=== PATIENT | female | born 1930 | race Caucasian/White ===

== ENCOUNTER 2018-11-04 00:19 | Inpatient (IN) ==
[2018-11-04] MEDS ORDERED: ONDANSETRON INJ 2 MG/ML 2 ML VIAL ONE (00:56)
[2018-11-04] MEDS ORDERED: SODIUM CHLORIDE 0.9% 1000ML 1,000 ML IV SCH ×2 (01:15→04:15)
[2018-11-04 01:31] LABS: Basophils # (auto) 0.04 K/uL (0-0.2); Basophils % (auto) 0.2 %; Eosinophils # (auto) 0.07 K/uL (0-0.5); Eosinophils % (auto) 0.4 %; Hematocrit (blood only) 32.4 % (37-47); Hemoglobin 10.8 g/dL (12.0-16.0); Immature Granulocytes # (auto) 0.09 K/uL (0.00-0.02); Immature Granulocytes % (auto) 0.5 %; Lymphocytes # (auto) 1.81 K/uL (1.2-3.4); Lymphocytes % (auto) 9.4 %; Mean Corpuscular Hgb Conc 33.3 g/dL (32-36); Mean Corpuscular Volume 97.9 fL (80-100); Mean Platelet Volume 10.4 fL (7.4-10.4); Monocytes % (auto) 4.1 %; Neutrophils # (auto) 16.48 K/uL (1.4-6.5); Neutrophils % (auto) 85.4 %; Platelet Count 221 K/uL (130-400); RDW Coefficient of Variation 13.1 % (11.5-14.5); RDW Standard Deviation 46.9 fL (36.4-46.3); Red Blood Count 3.31 M/uL (4.2-5.4); White Blood Count 19.29 K/uL (4.8-10.8)
[2018-11-04 01:41] LABS: INR 1.1 (0.9-1.1); Partial Thromboplastin Ratio 0.9; Partial Thromboplastin Time 23.1 Seconds (21.0-31.0); Prothrombin Time 11.3 Seconds (9.0-12.0)
[2018-11-04] MEDS ORDERED: ONDANSETRON INJ 2 MG/ML 2 ML VIAL IV STA (01:42)
[2018-11-04 01:57] LABS: BUN Creatinine Ratio 32.6 (10-20); Calcium 9.6 mg/dl (8.5-10.1); Creatinine Clr Calc Pharmacy 49.4 ml/min; Est GFR (African American) 94.6; Est GFR (Non-African American) 81.6
[2018-11-04 02:33] LABS: Appearance Urine Clear (Clear); Bilirubin Urine Negative (Negative); Blood Urine Negative (Negative); Color Urine Yellow; Glucose Urine UA Negative (Negative); Ketones Urine Trace (Negative); Leukocyte Esterase Urine Negative (Negative); Nitrite Urine Negative (Negative); Protein Urine Negative (Negative); Urobilinogen Urine Negative (Negative); pH Urine 6.5 (4.5-7.5)
[2018-11-04] MEDS ORDERED: fentaNYL citrate 100 MCG/2 ML VIAL IV ONE (02:39)
--- NOTE | 2018-11-04 03:50 | History & Physical Report ---
Date of Service November 04, 2018 Assessment & Plan (1) Hip fracture, right: Secondary to mechanical fall New onset anemia, possibly from joint trauma Patient also gives intermittent epistaxis episodes at home over the last few weeks. Hypoxemic respiratory failure likely secondary to narcotic analgesia breast cancer right status post surgery hypertension, stable Hyperglycemia rule out DM F Orthopedics consult Supplemental O2 caution with high doses of narcotic administration. Hold home diuretic while patient n.p.o. for possible procedure Check hemoglobin A1c No medical contraindication to prospective surgical procedure pending Orthopedics evaluation. DVT prophylaxis. SCDs Full code Patient requests for her nephew, Mr. Héctor Pineda to be updated of plan of care. (Contact #[phone].) History of Present Illness Chief Complaint: Fall, right hip pain Primary Care Provider: [facility] History obtained from patient and records. Medical history significant for breast cancer right status post surgery, hypertension, mood disorder, osteoarthritis, osteoporosis, skin cancer as per records. Recent confinement June 2018 for back pain attributed to T12 compression deformity. Last night, patient was at home when she was startled by a fire alarm at [facility]. Patient got up subsequently falling down on her right side. Patient noted excruciating right hip pain, unable to get up. Right hip noted to be shortened. No chest pain, no SOB. Denies head injury, LOC. O2 sats noted to be 80s after 8 mg of Morphine IM given en route to the hospital. 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, exertional shortness of breath prior to injury Allergies Allergy/AdvReac Type Severity Reaction Status Date / Time No Known Allergies Allergy Unknown Verified 11/04/18 02:09 Home Medications Home Medications Medication Instructions Recorded Confirmed Type acetaminophen [Tylenol Extra 500 mg PO Q6H PRN MDD 3g/24hr 06/26/18 11/04/18 History Strength] raloxifene 60 mg PO QAM 06/26/18 11/04/18 History sennosides-docusate sodium [Senna 3 tab PO BID PRN 06/26/18 11/04/18 History Plus] furosemide 20 mg PO MoWeFr@0900 #0 tab 06/27/18 11/04/18 Rx polyethylene glycol 3350 [Miralax] 17 g PO DAILY PRN #30 ea 06/27/18 11/04/18 Rx Solonpas Max Str Film 1 patch TOPICAL QAM 11/04/18 11/04/18 History alum-mag hydroxide-simeth [Antacid] 30 ml PO BIDM 11/04/18 11/04/18 History alum-mag hydroxide-simeth [Antacid] 30 ml PO TID PRN 11/04/18 11/04/18 History carvedilol 6.25 mg PO DAILY 11/04/18 11/04/18 History cholecalciferol (vitamin D3) 2,000 unit PO DAILY 11/04/18 11/04/18 History [Vitamin D3] lisinopril 10 mg PO QAM 11/04/18 11/04/18 History methyl salicylate-menthol [Icy Hot] 1 applic TOPICAL QAM 11/04/18 11/04/18 History sertraline 25 mg PO QAM 11/04/18 11/04/18 History trazodone 25 mg PO QAM 11/04/18 11/04/18 History Past Med/Surg History Medical History Mood disorder (Chronic) H/O malignant neoplasm of breast (Chronic) Bilateral lower extremity edema (Chronic) Osteoporosis (Chronic) Surgical History S/P cataract surgery (Chronic) H/O mastectomy (Chronic 04/01/13) "right, 2006" History of knee surgery (Chronic) Family History Other No pertinent family history in first degree relatives Social History Preferred Language: Korean Communication Ability: Effective Manager Pipeline Required: No Beliefs That Will Affect Care: None Current Living Situation: Alone current occupational status: retired Feels Safe at Home: Yes Safety Concerns: Feels Safe At This Time Smoking Status: Never smoker Hx Alcohol Use: No Hx Substance Use: No Review of Systems As per HPI, all 10 systems reviewed, all other ROS negative Physical Exam Vital Signs (Past 24 Hours): Last Vital Signs Temp 36.5 C 11/04/18 00:39 Pulse 75 11/04/18 02:43 Resp 18 11/04/18 02:43 BP 118/63 11/04/18 02:43 Pulse Ox 92 11/04/18 02:43 Physical Exam: GENERAL: uncomfortable, anxious, no respiratory distress SKIN: Pallor , warm HEENT: Pale palpebral conjunctivae, no ptosis, dry buccal mucosa, nasal cannula in place NECK : Supple, no tenderness CHEST : Decreased effort , no tenderness HEART : RRR, no obvious murmurs ABDOMEN: Some distention, nontender EXTREMITIES : Tender swelling right hip, right hip rotated ; no other conspicuous deformities noted NEUROLOGIC : Coherent, no facial asymmetry, no other gross focality Results & Data Laboratory Results Laboratory Results WBC 19.29 K/uL (4.8-10.8) H 11/04/18 01:15 RBC 3.31 M/uL (4.2-5.4) L 11/04/18 01:15 Hgb 10.8 g/dL (12.0-16.0) L 11/04/18 01:15 Hct 32.4 % (37-47) L 11/04/18 01:15 MCV 97.9 fL (80-100) 11/04/18 01:15 MCH 32.6 pg (25-34) 11/04/18 01:15 MCHC 33.3 g/dL (32-36) 11/04/18 01:15 RDW Std Deviation 46.9 fL (36.4-46.3) H 11/04/18 01:15 RDW Coeff of Ayesha 13.1 % (11.5-14.5) 11/04/18 01:15 Plt Count 221 K/uL (130-400) 11/04/18 01:15 MPV 10.4 fL (7.4-10.4) 11/04/18 01:15 Immature Gran % (Auto) 0.5 % 11/04/18 01:15 Neut % (Auto) 85.4 % 11/04/18 01:15 Lymph % (Auto) 9.4 % 11/04/18 01:15 [place] % (Auto) 4.1 % 11/04/18 01:15 Eos % (Auto) 0.4 % 11/04/18 01:15 Baso % (Auto) 0.2 % 11/04/18 01:15 Immature Gran # (Auto) 0.09 K/uL (0.00-0.02) H 11/04/18 01:15 Neut # (Auto) 16.48 K/uL (1.4-6.5) H 11/04/18 01:15 Lymph # (Auto) 1.81 K/uL (1.2-3.4) 11/04/18 01:15 [place] # (Auto) 0.80 K/uL (0.11-0.59) H 11/04/18 01:15 Eos # (Auto) 0.07 K/uL (0-0.5) 11/04/18 01:15 Baso # (Auto) 0.04 K/uL (0-0.2) 11/04/18 01:15 PT 11.3 Seconds (9.0-12.0) 11/04/18 01:15 INR 1.1 (0.9-1.1) 11/04/18 01:15 APTT 23.1 Seconds (21.0-31.0) 11/04/18 01:15 PTT Ratio 0.9 11/04/18 01:15 Sodium 133 mmol/L (136-145) L 11/04/18 01:15 Potassium mmol/L (3.5-5.1) 11/04/18 01:15 Chloride 104 mmol/L (98-107) 11/04/18 01:15 Carbon Dioxide 25 mmol/L (21-32) 11/04/18 01:15 Anion Gap 4.0 (3-11) 11/04/18 01:15 BUN 20 mg/dl (7-18) H 11/04/18 01:15 Creatinine 0.62 mg/dl (0.6-1.2) 11/04/18 01:15 Est Cr Clr Drug Dosing 49.4 ml/min 11/04/18 01:15 Est GFR ( Amer) 94.6 11/04/18 01:15 Est GFR (Non-Af Amer) 81.6 11/04/18 01:15 BUN/Creatinine Ratio 32.6 (10-20) H 11/04/18 01:15 Glucose 140 mg/dl (70-99) H 11/04/18 01:15 Calcium 9.6 mg/dl (8.5-10.1) 11/04/18 01:15 Urine Color Yellow 11/04/18 02:15 Urine Appearance Clear (Clear) 11/04/18 02:15 Urine pH 6.5 (4.5-7.5) 11/04/18 02:15 Ur Specific [place] 1.020 (1.000-1.030) 11/04/18 02:15 Urine Protein Negative (Negative) 11/04/18 02:15 Urine Glucose (UA) Negative (Negative) 11/04/18 02:15 Urine Ketones Trace (Negative) H 11/04/18 02:15 Urine Blood Negative (Negative) 11/04/18 02:15 Urine Nitrite Negative (Negative) 11/04/18 02:15 Urine Bilirubin Negative (Negative) 11/04/18 02:15 Urine Urobilinogen Negative (Negative) 11/04/18 02:15 Ur Leukocyte Esterase Negative (Negative) 11/04/18 02:15 Blood Type A Positive 11/04/18 01:15 Antibody Screen NEGATIVE 11/04/18 01:15 Diagnostic Findings Chest x-ray as per my interpretation no infiltrate no congestion EKG as per my interpretation : Rate 80, NSR, LAD, LAFB, LVH, no ischemia Right femur x-ray as per my interpretation displaced right hip fracture
[2018-11-04] MEDS ORDERED: MAGNESIUM HYDROXIDE SUSP 30 ML UDC PO PRN (03:55)
[2018-11-04] MEDS ORDERED: HYDROmorphone INJ 0.5 MG/0.5 ML SYR IV PRN (03:55)
[2018-11-04] MEDS ORDERED: PROCHLORPERAZINE 5 MG in SYRINGE 4 ML IV PRN (03:55)
[2018-11-04] MEDS ORDERED: NALOXONE HCL 0.4 MG/1 ML VIAL/CARP IV PRN ×2 (03:55→17:10)
[2018-11-04 04:04] LABS: Potassium 4.6 mmol/L (3.5-5.1)
[2018-11-04 04:13] LABS: Alanine Aminotransferase 13 U/L (12-78); Albumin Level 2.6 gm/dl (3.4-5.0); Alkaline Phosphatase 76 U/L (45-117); Aspartate Aminotransferase 16 U/L (15-37); Bilirubin Direct < 0.1 mg/dl (0-0.2); Bilirubin,Total 0.3 mg/dl (0.2-1); Magnesium 1.6 mg/dl (1.8-2.4); Total Protein 5.9 gm/dl (6.4-8.2)
[2018-11-04] MEDS ORDERED: DOCUSATE SODIUM/SENNA 50/8.6MG TAB PO PRN (04:56)
[2018-11-04] MEDS ORDERED: ACETAMINOPHEN 500 MG TAB PO PRN (04:56)
[2018-11-04] MEDS ORDERED: POLYETHYLENE (MIRALAX) 17 GM PACK PO PRN (04:56)
--- NOTE | 2018-11-04 05:54 | Emergency Department Note ---
Entered by Ney Navarrete acting as a scribe for Maine Mckeon DO History of Present Illness General Chief complaint: Hip Pain Stated complaint: hip fracture Time Seen by Provider: 11/04/18 00:30 Source: patient and RN notes reviewed Limitations: altered mental status History of Present Illness Maximum Pain Intensity: 10 The patient is an 88 year old female who presents to the Emergency Room with complaints of constant, severe, pain to her right thigh beginning prior to arrival. The patient states she got up from bed because she heard a fire alarm. She reports she got out of bed, and her leg gave out. The patient notes she has a history of broken bones, but she does not remember why. She states she is not sure if she hit her head, and her entire body hurts. Nursing staff reports the patient received 8mg of Morphine and 4mg of Zofran in route. Review of pt's chart shows she has a history of HTN and osteoporosis with pathological fractures of the vertebraes. HPI limited secondary to the patient's mental status. Home Medications Home Medications Medication Instructions Recorded Confirmed Type acetaminophen [Tylenol Extra 500 mg PO Q6H PRN MDD 3g/24hr 06/26/18 11/04/18 History Strength] raloxifene 60 mg PO QAM 06/26/18 11/04/18 History sennosides-docusate sodium [Senna 3 tab PO BID PRN 06/26/18 11/04/18 History Plus] furosemide 20 mg PO MoWeFr@0900 #0 tab 06/27/18 11/04/18 Rx polyethylene glycol 3350 [Miralax] 17 g PO DAILY PRN #30 ea 06/27/18 11/04/18 Rx Solonpas Max Str Film 1 patch TOPICAL QAM 11/04/18 11/04/18 History alum-mag hydroxide-simeth [Antacid] 30 ml PO BIDM 11/04/18 11/04/18 History alum-mag hydroxide-simeth [Antacid] 30 ml PO TID PRN 11/04/18 11/04/18 History carvedilol 6.25 mg PO DAILY 11/04/18 11/04/18 History cholecalciferol (vitamin D3) 2,000 unit PO DAILY 11/04/18 11/04/18 History [Vitamin D3] lisinopril 10 mg PO QAM 11/04/18 11/04/18 History methyl salicylate-menthol [Icy Hot] 1 applic TOPICAL QAM 11/04/18 11/04/18 History sertraline 25 mg PO QAM 11/04/18 11/04/18 History trazodone 25 mg PO QAM 11/04/18 11/04/18 History Allergies Allergy/AdvReac Type Severity Reaction Status Date / Time No Known Allergies Allergy Unknown Verified 11/04/18 02:09 Past Med/Surg History Medical History Mood disorder (Chronic) H/O malignant neoplasm of breast (Chronic) Bilateral lower extremity edema (Chronic) Osteoporosis (Chronic) Surgical History S/P cataract surgery (Chronic) H/O mastectomy (Chronic 04/01/13) "right, 2006" History of knee surgery (Chronic) Family History Other No pertinent family history in first degree relatives Social History Preferred Language: Faroese Communication Ability: Effective 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 Beliefs That Will Affect Care: None Current Living Situation: Alone current occupational status: retired Feels Safe at Home: Yes Safety Concerns: Feels Safe At This Time Smoking Status: Never smoker Hx Alcohol Use: No Hx Substance Use: No Review of Systems Unobtainable due to cognitive status Physical Exam Vital Signs Vital Signs - 24 hr 11/04/18 00:39 11/04/18 00:46 11/04/18 02:01 Temperature 36.5 C Temperature Source Oral Sepsis Recent Fever Within 48 Hours No Sepsis Action Taken by Nursing No Action Required Pulse Rate 88 Pulse Rate [Finger] 80 Pulse Rhythm [Finger] Pulse Strength [Finger] Respiratory Rate 18 18 Respiratory Effort / Characteristics Respiratory Depth Respiratory Pattern Blood Pressure 138/90 Blood Pressure [Right Arm] 151/73 H Blood Pressure Mean 106 Blood Pressure Mean [Right Arm] 99 Blood Pressure Position [Right Arm] Pulse Oximetry 83 L 96 99 Oxygen Delivery Method Room Air Nasal Cannula Nasal Cannula Oxygen Flow Rate 2 2 11/04/18 02:43 11/04/18 04:05 11/04/18 05:00 Temperature 36.4 C L Temperature Source Oral Sepsis Recent Fever Within 48 Hours Sepsis Action Taken by Nursing Pulse Rate Pulse Rate [Finger] 75 95 H Pulse Rhythm [Finger] Regular Pulse Strength [Finger] Normal Respiratory Rate 18 16 Respiratory Effort / Characteristics Non-Labored Spontaneous Respiratory Depth Normal Respiratory Pattern Regular Regular Blood Pressure Blood Pressure [Right Arm] 118/63 150/70 H Blood Pressure Mean Blood Pressure Mean [Right Arm] 81 96 Blood Pressure Position [Right Arm] Lying Pulse Oximetry 92 94 Oxygen Delivery Method Nasal Cannula Nasal Cannula Nasal Cannula Oxygen Flow Rate 2 2 2 HEENT: Head - normocephalic and atraumatic. Pupils are equal, round, and reactive to light. Extraocular eye muscles are intact and sclera are anicteric. Nose - moist nasal mucosa without evidence of trauma or discharge. Mouth - moist buccal mucosa with no trauma to the teeth or signs of malocclusion. Neck: The neck is supple and there is no pain to palpation over the posterior cervical spine and no obvious step-offs or deformities. There is no JVD or tracheal deviation. Chest: There are no signs of deformities, contusions or abrasions to the chest wall. There is no obvious crepitus or paradoxical chest rise. Heart: Regular, rate, and rhythm. There is a normal S1 and S2 with no murmurs, clicks, or gallops appreciated. Lungs: Clear to auscultation bilaterally with no wheezes, rales, or rhonchi. Abdomen: Soft, completely nontender, slightly distended, with good bowel sounds. There is no sign of trauma such as contusions, abrasions or penetrations. There are no palpable pulsatile masses or hepatosplenomegaly. There is no guarding, rigidity, or rebound noted. Pelvis: Stable to rock and compression. Extremities: Obvious deformity to the right proximal femur. Moderate edema in both feet and ankles. There are easily palpable peripheral pulses. Neuro: The patient is awake and alert and easily able to follow commands. Muscle strength is 5 out of 5 in all 4 extremities. Otherwise, neuro exam is unremarkable. Back: The entire thoracic, lumbar, and sacral spine were palpated. There are no obvious step-offs or deformities noted. There are no obvious signs of trauma such as contusions abrasions penetrations noted to the back. Severe kyphosis. Course 0053: The patient was evaluated in room B07. A complete history and physical examination were performed. Nursing notes and previous electronic medical records were reviewed. labs were drawn as above. 0115: Ordered Sodium Chloride 1000 ml @ 150 mls/hr IV 0142: Ordered Zofran 2mg IV 0234: The patient states she cannot keep her head up. She is going for a CT scan of the neck/head. 0239: The patient continues to complain of pain in the right proximal thigh. I ordered Fentanyl Citrate 50mcg IV 0332: I reevaluated the patient and discussed the findings with her. She verbalized agreement to a hospitalist evaluation and the treatment plan. The patient will be evaluated for further management and care. 0348: I reviewed the patient's case with Dr. Ferreira, [facility] Hospitalist. He will evaluate the patient for further management. Administered Medications Sodium Chloride (Nss 1000ml) 1,000 mls @ 60 mls/hr IV .[id number] [facility] Stop: 12/04/18 04:14 Last Admin: 11/04/18 05:26 Dose: 60 mls/hr Documented by: [id number] Discontinued Medications Fentanyl Citrate (Fentanyl Citrate) 50 mcg IV NOW ONE Stop: 11/04/18 02:40 Last Admin: 11/04/18 02:44 Dose: 50 mcg Documented by: [id number] Sodium Chloride (Nss 1000ml) 1,000 mls @ 150 mls/hr IV .[id number] [facility] Stop: 11/04/18 07:54 Last Infusion: 11/04/18 05:34 Dose: 0 mls/hr Documented by: [id number] Admin: 11/04/18 01:20 Dose: 150 mls/hr Documented by: [id number] Ondansetron HCl (Zofran) Confirm Administered Dose 4 mg .ROUTE .STK-MED ONE Stop: 11/04/18 00:57 Last Admin: 11/04/18 02:04 Dose: Not Given Documented by: [id number] Ondansetron HCl (Zofran) 2 mg IV NOW STA Stop: 11/04/18 01:43 Last Admin: 11/04/18 00:56 Dose: 2 mg Documented by: [id number] Medical Decision Making Differential Diagnosis Differential Diagnosis includes:pathologic fracture, traumatic fracture secondary to fall, dehydration, syncope. Medical Records Attestation: I reviewed the patient's medical records. Home Medications Current Medication List: was personally reviewed by me Laboratory Data Attestation: I reviewed the patient's lab results. Result diagrams: 11/04/18 01:15 11/04/18 03:39 Lab Results 11/04/18 11/04/18 11/04/18 Range/Units 01:15 01:15 01:15 WBC 19.29 H (4.8-10.8) K/uL RBC 3.31 L (4.2-5.4) M/uL Hgb 10.8 L (12.0-16.0) g/dL Hct 32.4 L (37-47) % MCV 97.9 (80-100) fL MCH 32.6 (25-34) pg MCHC 33.3 (32-36) g/dL RDW Std Deviation 46.9 H (36.4-46.3) fL RDW Coeff of Ayesha 13.1 (11.5-14.5) % Plt Count 221 (130-400) K/uL MPV 10.4 (7.4-10.4) fL Immature Gran % (Auto) 0.5 % Neut % (Auto) 85.4 % Lymph % (Auto) 9.4 % [place] % (Auto) 4.1 % Eos % (Auto) 0.4 % Baso % (Auto) 0.2 % Immature Gran # (Auto) 0.09 H (0.00-0.02) K/uL Neut # (Auto) 16.48 H (1.4-6.5) K/uL Lymph # (Auto) 1.81 (1.2-3.4) K/uL [place] # (Auto) 0.80 H (0.11-0.59) K/uL Eos # (Auto) 0.07 (0-0.5) K/uL Baso # (Auto) 0.04 (0-0.2) K/uL PT 11.3 (9.0-12.0) Seconds INR 1.1 (0.9-1.1) APTT 23.1 (21.0-31.0) Seconds PTT Ratio 0.9 Sodium 133 L (136-145) mmol/L Potassium (3.5-5.1) mmol/L Chloride 104 (98-107) mmol/L Carbon Dioxide 25 (21-32) mmol/L Anion Gap 4.0 (3-11) BUN 20 H (7-18) mg/dl Creatinine 0.62 (0.6-1.2) mg/dl Est Cr Clr Drug Dosing 49.4 ml/min Est GFR ( Amer) 94.6 Est GFR (Non-Af Amer) 81.6 BUN/Creatinine Ratio 32.6 H (10-20) Glucose 140 H (70-99) mg/dl Calcium 9.6 (8.5-10.1) mg/dl Magnesium (1.8-2.4) mg/dl Total Bilirubin (0.2-1) mg/dl Direct Bilirubin (0-0.2) mg/dl AST (15-37) U/L ALT (12-78) U/L Alkaline Phosphatase (45-117) U/L Total Protein (6.4-8.2) gm/dl Albumin (3.4-5.0) gm/dl Urine Color Urine Appearance (Clear) Urine pH (4.5-7.5) Ur Specific [place] (1.000-1.030) Urine Protein (Negative) Urine Glucose (UA) (Negative) Urine Ketones (Negative) Urine Blood (Negative) Urine Nitrite (Negative) Urine Bilirubin (Negative) Urine Urobilinogen (Negative) Ur Leukocyte Esterase (Negative) Blood Type Antibody Screen 11/04/18 11/04/18 11/04/18 Range/Units 01:15 02:15 03:39 WBC (4.8-10.8) K/uL RBC (4.2-5.4) M/uL Hgb (12.0-16.0) g/dL Hct (37-47) % MCV (80-100) fL MCH (25-34) pg MCHC (32-36) g/dL RDW Std Deviation (36.4-46.3) fL RDW Coeff of Ayesha (11.5-14.5) % Plt Count (130-400) K/uL MPV (7.4-10.4) fL Immature Gran % (Auto) % Neut % (Auto) % Lymph % (Auto) % [place] % (Auto) % Eos % (Auto) % Baso % (Auto) % Immature Gran # (Auto) (0.00-0.02) K/uL Neut # (Auto) (1.4-6.5) K/uL Lymph # (Auto) (1.2-3.4) K/uL [place] # (Auto) (0.11-0.59) K/uL Eos # (Auto) (0-0.5) K/uL Baso # (Auto) (0-0.2) K/uL PT (9.0-12.0) Seconds INR (0.9-1.1) APTT (21.0-31.0) Seconds PTT Ratio Sodium (136-145) mmol/L Potassium 4.6 (3.5-5.1) mmol/L Chloride (98-107) mmol/L Carbon Dioxide (21-32) mmol/L Anion Gap (3-11) BUN (7-18) mg/dl Creatinine (0.6-1.2) mg/dl Est Cr Clr Drug Dosing ml/min Est GFR ( Amer) Est GFR (Non-Af Amer) BUN/Creatinine Ratio (10-20) Glucose (70-99) mg/dl Calcium (8.5-10.1) mg/dl Magnesium 1.6 L (1.8-2.4) mg/dl Total Bilirubin 0.3 (0.2-1) mg/dl Direct Bilirubin < 0.1 (0-0.2) mg/dl AST 16 (15-37) U/L ALT 13 (12-78) U/L Alkaline Phosphatase 76 (45-117) U/L Total Protein 5.9 L (6.4-8.2) gm/dl Albumin 2.6 L (3.4-5.0) gm/dl Urine Color Yellow Urine Appearance Clear (Clear) Urine pH 6.5 (4.5-7.5) Ur Specific [place] 1.020 (1.000-1.030) Urine Protein Negative (Negative) Urine Glucose (UA) Negative (Negative) Urine Ketones Trace H (Negative) Urine Blood Negative (Negative) Urine Nitrite Negative (Negative) Urine Bilirubin Negative (Negative) Urine Urobilinogen Negative (Negative) Ur Leukocyte Esterase Negative (Negative) Blood Type A Positive Antibody Screen NEGATIVE Imaging Data Attestation: I personally reviewed and interpreted this imaging study as follows: My Impression: XR chest 1V portable: left basilar atelectasis, no other pulmonary findings, no cardiomegaly. XR femur RT 2V routine: proximal ,angulated, comminuted femur fracture XR pelvis 1-2V routine: Femur fracture that is better described on detailed femur film. Radiologist's Impression: Radiology results as stated below per my review and the [facility] radiologist's interpretation: CT HEAD: Comparison:CT dated 08/29/2015. No acute intracranial hemorrhage, skull fracture, or other acute intracranial abnormality. Stable atrophy and chronic small vessel ischemic disease. Radiologist: Shira Shelton MD Study ready at 03:14 and initial results transmitted at 03:23 CT C SPINE: No acute fracture or traumatic subluxation of the cervical spine. Markedly exaggerated cervical lordosis which maybe related to positioning. Correlate clinically. Degenerative changes of the cervical spine. Incidental findings: Left thyroid lobe nodule measuring 1.3 cm. Biapical scarring in the lungs. Atherosclerotic vascular disease. Radiologist: Shira Shelton MD Study ready at 03:14 and initial results transmitted at 03:25 ECG Data Attestation: I personally reviewed and interpreted this ECG as follows: Indication: other (trauma) Rate (beats per minute): 79 Rhythm: normal sinus Findings: no PAC, no PVC, no ST depression, no ST elevation, no acute ischemic change and no ectopy Blood Pressure Blood Pressure Findings: Normal blood pressure Blood Pressure Disposition: did not require urgent referral MDM Narrative The patient is an 88 year old female who presents to the Emergency Room with complaints of constant, severe, pain to her right thigh beginning prior to arrival. The patient got up out of bed tonight and describes that her right leg gave out and she fell to the floor. She denies striking her head or losing consciousness. She immediately developed a severe pain in the right proximal thigh. X-ray confirms an angulated comminuted proximal right femur fracture. The patient had good pulses sensation and movement in that right lower extremity despite the angulation. CT scan of the brain and cervical spine were negative for traumatic injury. The patient will be evaluated by the [facility] Hospitalist group and they will consult with orthopedics. Impression & Plan Closed fracture of proximal end of femur, Fall Discharge Plan Visit Data *Final* Discharge Date/Time: 11/04/18 04:17 Chief Complaint: Hip Pain Stated Complaint: hip fracture ED Provider: Botti,Maine A Discharge Problem: Closed fracture of proximal end of femur, Fall Patient Disposition: Admitted As Inpatient Discharge Instructions Interventions: ED Discharge Assessment Last Done: 11/04/18 04:17 Discharge Problem: Fall Qualifiers: Encounter type: initial encounter Qualified Code(s): W19.XXXA - Unspecified fall, initial encounter The scribe's documentation has been prepared under my direction and personally reviewed by me in its entirety. I confirm that the note above accurately reflects all work, treatment, procedures, and medical decision making performed by me.
--- NOTE | 2018-11-04 06:30 | CT Scan Report ---
CT head/brain wo con CLINICAL HISTORY: Head pain status post trauma COMPARISON STUDY: August 29, 2015 TECHNIQUE: Axial CT of the brain is performed from the vertex to the skull base. IV contrast was not administered for this examination. A dose lowering technique was utilized adhering to the principles of ALARA. CT DOSE: FINDINGS: No intra or extra-axial mass lesions are visualized. There is no CT evidence of acute cortical infarc tion. There is no evidence of midline shift. There is no acute hemorrhage. No calvarial fractures ar e visualized. There are patchy white matter hypodensities likely on a small vessel basis. There is no evidence of pathologic ventricular dilatation. There is a small left maxillary sinus polyp/retention cyst. IMPRESSION: No acute intracranial findings Electronically signed by: Archie Avilez M.D. 11/04/2018 6:28 AM
--- NOTE | 2018-11-04 06:55 | XRay Report ---
XR chest 1V portable CLINICAL HISTORY: pre-op COMPARISON STUDY: 08/29/2015 FINDINGS: The heart is the upper limits of normal in size. There is mild chronic interstitial thicken ing. There is no acute parenchymal consolidation. There is no overt failure. There are no significant pleural effusions. There are old right-sided rib fractures.[ IMPRESSION: Chronic changes. No acute findings. Electronically signed by: Archie Avilez M.D. 11/04/2018 6:54 AM
--- NOTE | 2018-11-04 06:59 | XRay Report ---
XR femur RT 2V routine CLINICAL HISTORY: Right femur pain status post trauma COMPARISON: None. DISCUSSION: The bones are osteopenic. There is an intertrochanteric right hip fracture with secondary varus angulation. The fracture extends into the proximal femoral diaphysis. IMPRESSION: Intertrochanteric right hip fracture with extension to the proximal femoral diaphysis. Se condary varus angulation. Electronically signed by: Archie Avilez M.D. 11/04/2018 6:58 AM
--- NOTE | 2018-11-04 07:00 | XRay Report ---
XR pelvis 1-2V routine CLINICAL HISTORY: Pelvic pain status post trauma COMPARISON: None. DISCUSSION: There is a comminuted intratrochanteric right hip fracture with extension to the proximal femoral diaphysis. There is secondary varus angulation. The bones are osteopenic. IMPRESSION: Intertrochanteric right hip fracture Electronically signed by: Archie Avilez M.D. 11/04/2018 6:58 AM
--- NOTE | 2018-11-04 07:18 | CT Scan Report ---
CERVICAL SPINE CT CT DOSE: 1078.32 mGy.cm HISTORY: eval for fracture - fall TECHNIQUE: Multiaxial CT images of the cervical spine were performed and reformatted in the sagittal and coronal plane without the use of contrast. A dose lowering technique was utilized adhering to th e principles of ALARA. COMPARISON: Cervical spine CT 08/29/2015. FINDINGS: No fractures. No subluxation. Prevertebral soft tissues and the C1-C2 interval are intact. No pneumothorax. Degenerative changes within the cervical spine. A 1.3 cm left thyroid nodule. Biapic al pleural-parenchymal scarring. IMPRESSION: No fractures within the cervical spine. Electronically signed by: Dagoberto Nation M.D. 11/04/2018 7:16 AM
[2018-11-04 07:35] LABS: Estimated Average Glucose 114 mg/dl; Hemoglobin A1C 5.6 % (4.5-5.6)
[2018-11-04] MEDS: TRAMADOL HCL 50 MG TABLET PO PRN (07:37)
[2018-11-04] MEDS: CARVEDILOL 6.25 MG TAB PO SCH (07:53)
[2018-11-04] MEDS: TRAZODONE HCL 50 MG TAB PO SCH (07:54)
[2018-11-04] MEDS: SERTRALINE HCL 50 MG TABLET PO SCH (07:54)
[2018-11-04] MEDS: LISINOPRIL 10 MG TAB PO SCH (07:55)
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
[2018-11-04] MEDS ORDERED: LISINOPRIL 10 MG TAB PO SCH ×2 (09:00)
--- NOTE | 2018-11-04 09:51 | Anesthesiology Consultation ---
Date of Service November 04, 2018 Assessment & Plan (1) Encounter for pre-operative examination: Chart Review Chart Review: Acceptable Risk for Surgery NPO Date Last Intake of Fluids: 11/03/18 Time Last Intake of Fluids: 23:59 Date Last Intake of Solids: 11/03/18 Time Last Intake of Solids: 23:59 History Surgery Operation Date: 11/04/18 07:10 Proposed Procedures p Right Long Trochanteric Nail Possible use of Cables - Kamran Harris MD Height/Weight Height: 5 ft 1 in Weight: 48 kg Allergies Allergy/AdvReac Type Severity Reaction Status Date / Time No Known Allergies Allergy Unknown Verified 11/04/18 02:09 Medications Home Medications Medication Instructions Recorded Confirmed Last Taken acetaminophen [Tylenol Extra 500 mg PO Q6H PRN MDD 3g/24hr 06/26/18 11/04/18 06/24/18 Strength] raloxifene 60 mg PO QAM 06/26/18 11/04/18 06/24/18 sennosides-docusate sodium [Senna 3 tab PO BID PRN 06/26/18 11/04/18 06/25/18 Plus] furosemide 20 mg PO MoWeFr@0900 #0 tab 06/27/18 11/04/18 06/24/18 polyethylene glycol 3350 [Miralax] 17 g PO DAILY PRN #30 ea 06/27/18 11/04/18 Unknown Solonpas Max Str Film 1 patch TOPICAL QAM 11/04/18 11/04/18 Unknown alum-mag hydroxide-simeth [Antacid] 30 ml PO BIDM 11/04/18 11/04/18 Unknown alum-mag hydroxide-simeth [Antacid] 30 ml PO TID PRN 11/04/18 11/04/18 Unknown carvedilol 6.25 mg PO DAILY 11/04/18 11/04/18 Unknown cholecalciferol (vitamin D3) 2,000 unit PO DAILY 11/04/18 11/04/18 Unknown [Vitamin D3] lisinopril 10 mg PO QAM 11/04/18 11/04/18 Unknown methyl salicylate-menthol [Icy Hot] 1 applic TOPICAL QAM 11/04/18 11/04/18 Unknown sertraline 25 mg PO QAM 11/04/18 11/04/18 Unknown trazodone 25 mg PO QAM 11/04/18 11/04/18 Unknown Active Medications Generic Name Dose Route Start Last Admin Trade Name Freq PRN Reason Stop Dose Admin Carvedilol 6.25 mg 11/04/18 09:00 11/04/18 07:53 Coreg PO 12/04/18 08:59 6.25 mg DAILY JESSICA Administration Hydromorphone HCl 0.25 mg 11/04/18 03:55 11/04/18 07:53 Dilaudid IV 11/18/18 03:54 0.25 mg Q2H PRN Administration Pain Sodium Chloride 1,000 mls @ 60 mls/hr 11/04/18 04:15 11/04/18 05:26 Nss 1000ml IV 12/04/18 04:14 60 mls/hr .[id number] JESSICA Administration Lisinopril 10 mg 11/04/18 09:00 11/04/18 07:55 Zestril PO 12/04/18 08:59 Not Given QAM JESSICA Sertraline HCl 25 mg 11/04/18 09:00 11/04/18 07:54 Zoloft PO 12/04/18 08:59 25 mg QAM JESSICA Administration Trazodone HCl 25 mg 11/04/18 09:00 11/04/18 07:54 Desyrel PO 12/04/18 08:59 25 mg QAM JESSICA Administration Past Medical History Medical History Mood disorder (Chronic) H/O malignant neoplasm of breast (Chronic) Bilateral lower extremity edema (Chronic) Osteoporosis (Chronic) Past Family History Family History Other No pertinent family history in first degree relatives Past Surgical History Surgical History S/P cataract surgery (Chronic) H/O mastectomy (Chronic 04/01/13) "right, 2006" History of knee surgery (Chronic) Social History Smoking Status: Never smoker Hx Alcohol Use: No Hx Substance Use: No substance use type: does not use Physical Exam Vital Signs Last Vital Signs Temp 36.8 C 11/04/18 13:17 Pulse 101 H 11/04/18 13:17 Resp 18 11/04/18 13:17 BP 118/64 11/04/18 13:17 Pulse Ox 93 11/04/18 13:17 Testing Electrocardiogram Date: 11/04/18 Findings: + NSR @ (79) Normal sinus rhythm Left anterior fascicular block Minimal voltage criteria for LVH, may be normal variant Cannot rule out Inferior infarct , age undetermined Abnormal ECG When compared with ECG of 31-AUG-2015 06:50, Criteria for Septal infarct are no longer Present No significant change was found Chest X-Ray Date: 11/04/18 Findings: + NAD Laboratory Results 11/04/18 01:15 11/04/18 03:39 Blood Type A Positive 11/04/18 01:15 Antibody Screen NEGATIVE 11/04/18 01:15 PT 11.3 Seconds (9.0-12.0) 11/04/18 01:15 INR 1.1 (0.9-1.1) 11/04/18 01:15 APTT 23.1 Seconds (21.0-31.0) 11/04/18 01:15 Hemoglobin A1c 5.6 % (4.5-5.6) 11/04/18 01:15 Urine Color Yellow 11/04/18 02:15 Urine Appearance Clear (Clear) 11/04/18 02:15 Urine pH 6.5 (4.5-7.5) 11/04/18 02:15 Ur Specific [place] 1.020 (1.000-1.030) 11/04/18 02:15 Urine Protein Negative (Negative) 11/04/18 02:15 Urine Glucose (UA) Negative (Negative) 11/04/18 02:15 Urine Ketones Trace (Negative) H 11/04/18 02:15 Urine Nitrite Negative (Negative) 11/04/18 02:15 Ur Leukocyte Esterase Negative (Negative) 11/04/18 02:15
[2018-11-04] MEDS ORDERED: PROPOFOL IV EMULSION 10 MG/ML 20 ML VIAL IV ONE (11:22)
[2018-11-04] MEDS ORDERED: fentaNYL citrate 100 MCG/2 ML VIAL ONE (11:22)
[2018-11-04] MEDS ORDERED: LIDOCAINE HCL 2% 2 ML VIAL/AMP(20MG/ML) INFIL ONE (11:22)
[2018-11-04] MEDS ORDERED: BUPIVACAINE 0.5 % 5 MG/1 ML PF 10ML VIAL ONE (13:14)
[2018-11-04] MEDS ORDERED: BUPIVACAINE 0.5 % 5 MG/1 ML MPF 30ML VIAL ONE (13:14)
--- NOTE | 2018-11-04 13:26 | History & Physical Bridge Note ---
Date of Service November 04, 2018 History & Physical Bridge Note I have examined the patient, reviewed the History & Physical and in the interval since the performance of the History & Physical I have noted the following changes of clinical significance: no changes noted
[2018-11-04] MEDS ORDERED: CEFAZOLIN 1,000 MG/7.5 ML IV PUSH IV ONE (13:29)
[2018-11-04] MEDS ORDERED: CEFAZOLIN 1000MG 1,000 MG/7.5 ML SYR IV ONE (13:38)
[2018-11-04] MEDS ORDERED: PHENYLEPHRINE 100MCG/ML 5ML SYR ONE (14:16)
[2018-11-04] MEDS ORDERED: PHENYLEPHRINE HCL 10 MG/ML VIAL ONE (14:16)
--- NOTE | 2018-11-04 15:11 | Hospitalist Progress Note ---
Date of Service November 04, 2018 Assessment & Plan (1) Hip fracture, right: Secondary to mechanical fall No history of loss of consciousness Appreciate Ortho input and recommendation Likely to have surgery sometime today or tomorrow No medical contraindication to prospective surgical procedure pending Orthopedics evaluation. Anemia, possibly from joint trauma Patient also gives intermittent epistaxis episodes at home over the last few weeks. Will monitor hemoglobin Hypoxemic respiratory failure likely secondary to narcotic analgesia Oxygen as needed H/O breast cancer right status post surgery hypertension, stable Hyperglycemia rule out DM DVT prophylaxis. SCDs Full code Patient requests for her nephew, Mr. Héctor Pineda to be updated of plan of care. (Contact #[phone].) Subjective 11/04 Patient is seen and examined medically She is a status post fall with fracture of the right humeral head Complaints of pain in the right lower extremity Denies any other symptoms of shortness of breath, palpitation chest pain, abdominal pain, nausea no vomiting, Physical Exam Vital Signs (Past 24 Hours): Last Vital Signs Temp 36.8 C 11/04/18 13:17 Pulse 101 H 11/04/18 13:17 Resp 18 11/04/18 13:17 BP 118/64 11/04/18 13:17 Pulse Ox 93 11/04/18 13:17 Physical Exam: Lying in bed comfortably Constitutional: WD/WN, vitals as above + ill appearing Eyes: PERRL, conjunctivae normal, anicteric sclerae ENMT: external ear and nose normal, oropharynx normal Neck: trachea midline, no thyromegaly Respiratory: normal respiratory effort Auscultation: lungs clear to auscultation bilaterally and + diminished lung sounds Cardiovascular: Rate/Rhythm: regular rate and regular rhythm Heart Sounds: normal S1 and normal S2 Gastrointestinal (Abdomen): Inspection/Auscultation: abdomen normal to inspection and normal bowel sounds Percussion/Palpation: abdomen soft; abdomen nontender Neurologic: Alert, awake and oriented x3 Results & Data Laboratory Results Short CBC 11/04/18 Range/Units 01:15 WBC 19.29 H (4.8-10.8) K/uL Hgb 10.8 L (12.0-16.0) g/dL Hct 32.4 L (37-47) % Plt Count 221 (130-400) K/uL BMP 11/04/18 11/04/18 01:15 03:39 Sodium 133 L Potassium 4.6 Chloride 104 Carbon Dioxide 25 BUN 20 H Creatinine 0.62 Glucose 140 H Calcium 9.6 Liver Function 11/04/18 Range/Units 03:39 Total Bilirubin 0.3 (0.2-1) mg/dl Direct Bilirubin < 0.1 (0-0.2) mg/dl AST 16 (15-37) U/L ALT 13 (12-78) U/L Alkaline Phosphatase 76 (45-117) U/L Albumin 2.6 L (3.4-5.0) gm/dl Urine 11/04/18 Range/Units 02:15 Urine Color Yellow Urine Appearance Clear (Clear) Urine pH 6.5 (4.5-7.5) Ur Specific [place] 1.020 (1.000-1.030) Urine Protein Negative (Negative) Urine Glucose (UA) Negative (Negative) Medications Administered Current Inpatient Medications Acetaminophen (Tylenol) 650 mg PO Q4H PRN PRN Reason: pain/fever Stop: 12/04/18 03:54 Carvedilol (Coreg) 6.25 mg PO DAILY [facility] Stop: 12/04/18 08:59 Last Admin: 11/04/18 07:53 Dose: 6.25 mg Documented by: Hydromorphone HCl (Dilaudid) 0.25 mg IV Q2H PRN PRN Reason: Pain Stop: 11/18/18 03:54 Last Admin: 11/04/18 07:53 Dose: 0.25 mg Documented by: Prochlorperazine 5 mg/ Syringe 5 mls @ 5 mls/min IV Q6H PRN PRN Reason: Nausea And Vomiting Stop: 12/04/18 03:54 Sodium Chloride (Nss 1000ml) 1,000 mls @ 60 mls/hr IV .[id number] [facility] Stop: 12/04/18 04:14 Last Admin: 11/04/18 05:26 Dose: 60 mls/hr Documented by: Lisinopril (Zestril) 10 mg PO QAM [facility] Stop: 12/04/18 08:59 Last Admin: 11/04/18 07:55 Dose: Not Given Documented by: Magnesium Hydroxide (Milk Of Magnesia) 30 ml PO DAILY PRN PRN Reason: Constipation Stop: 12/04/18 03:54 Naloxone HCl (Narcan) 0.1 mg IV UD PRN PRN Reason: Opiate Overdose Stop: 12/04/18 03:54 Polyethylene Glycol (Miralax Powder Packet) 17 gm PO DAILY PRN PRN Reason: constipation Stop: 12/04/18 04:55 Senna/Docusate Sodium (Senokot S) 3 tab PO BID PRN PRN Reason: Constipation Stop: 12/04/18 04:55 Sertraline [facility]ft) [facility] Stop: 12/04/18 08:59 Last Admin: 11/04/18 07:54 Dose: 25 mg Documented by: Tramadol HCl (Ultram) 25 - 50 mg PO Q4H PRN PRN Reason: Pain Stop: 12/04/18 03:54 Trazodone HCl (Desyrel) 25 mg PO QAM [facility] Stop: 12/04/18 08:59 Last Admin: 11/04/18 07:54 Dose: 25 mg Documented by:
--- NOTE | 2018-11-04 15:51 | Fluoroscopy Report ---
FL hip RT 2-3V CLINICAL HISTORY: RT LONG TROCH NAILoperative images COMPARISON STUDY: 11/04/2018 FLUOROSCOPY TIME: 4 minutes 6 seconds NUMBER OF FLUOROSCOPIC IMAGES: 7 FINDINGS: Image intensifier utilized for right hip Nailing procedure As well as placement of a longstem right femoral intramedullary ventura. IMPRESSION: Image intensifier utilized for right hip nailing procedure as well as placement of a righ t femoral intramedullary ventura The above report was generated using voice recognition software. It may contain grammatical, syntax or spelling errors. Electronically signed by: Jerome Mcguire M.D. 11/04/2018 3:50 PM
--- NOTE | 2018-11-04 16:13 | Post Operative Brief Note ---
Immediate Post Op Note v1 Date of Surgery November 04, 2018 Pre & Post Diagnosis Operation Date: 11/04/18 07:10 Pre-Op Diagnosis: Right intertrochanteric hip fracture with femoral shaft fracture extension Post-Op Diagnosis: Right intertrochanteric hip fracture with femoral shaft fracture extension Procedure Operation Date: 11/04/18 07:10 Actual Procedures p Open Reduction Internal Fixation Right Intertrochanteric and Upper Femoral Shaft Fracture(Right) with trochanteric femoral nail- Kamran Harris MD Surgeon Kamran Harris MD Lecturer In Computer Science Murali GARZA Estimated Blood Loss 50 Findings Consistent with Post-Op Diagnosis Drains Owen Catheter (in place prior to admission to OR, clear yellow urine noted. Anesthesia to monitor urine output during surgery) Anesthesia Type Spinal MAC Complications none Disposition Accompanied Patient To Recovery: No Disposition: Recovery Room Overlapping Procedure I was immediately available: during the entire case.
--- NOTE | 2018-11-04 16:19 | Anesthesiology Progress Note ---
Date of Service November 04, 2018 Anesthesia Post Procedure Vital Signs Vital Signs: Temp Pulse Pulse Resp BP BP Pulse Ox 11/04/18 13:17 36.8 C 101 H 18 118/64 93 11/04/18 07:08 36.4 C L 91 H 16 134/66 96 11/04/18 05:42 11/04/18 05:37 11/04/18 04:05 36.4 C L 95 H 16 150/70 H 94 11/04/18 02:43 75 18 118/63 92 11/04/18 02:01 80 18 151/73 H 99 11/04/18 00:46 96 11/04/18 00:39 36.5 C 88 18 138/90 83 L Pulse Ox 11/04/18 13:17 11/04/18 07:08 11/04/18 05:42 95 11/04/18 05:37 95 11/04/18 04:05 11/04/18 02:43 11/04/18 02:01 11/04/18 00:46 11/04/18 00:39 Pain Intensity Right Hip: Pain Intensity: 0 Notes Mental Status: alert / awake / arousable and participated in evaluation Patient Amnestic to Procedure: Yes Nausea / Vomiting: adequately controlled Pain: adequately controlled Airway Patency, RR, SpO2: stable & adequate BP & HR: stable & adequate Hydration State: stable & adequate Anesthetic Complications: no major complications apparent and Pt Satisfied with anesthetic care
--- NOTE | 2018-11-04 17:14 | Anesthesiology Progress Note ---
Date of Service November 04, 2018 Anesthesia Post Procedure Vital Signs Vital Signs: Temp Pulse Pulse Pulse Resp BP BP 11/04/18 16:45 36.8 C 108/54 L 11/04/18 16:41 65 20 103/49 L 11/04/18 16:40 65 14 11/04/18 16:36 62 15 105/43 L 11/04/18 16:35 66 14 11/04/18 16:31 63 17 108/50 L 11/04/18 16:30 64 16 11/04/18 16:26 65 16 103/50 L 11/04/18 16:25 66 16 11/04/18 16:21 66 16 106/55 L 11/04/18 16:20 67 20 11/04/18 16:17 65 18 108/51 L 11/04/18 16:15 66 20 11/04/18 16:12 65 18 119/58 L 11/04/18 16:10 61 18 11/04/18 16:07 61 17 123/53 L 11/04/18 16:05 66 15 11/04/18 16:01 61 20 11/04/18 16:00 36.0 C L 70 69 16 131/45 L 131/45 L 11/04/18 13:17 36.8 C 101 H 18 11/04/18 07:08 36.4 C L 91 H 16 11/04/18 05:42 11/04/18 05:37 11/04/18 04:05 36.4 C L 95 H 16 11/04/18 02:43 75 18 11/04/18 02:01 80 18 11/04/18 00:46 11/04/18 00:39 36.5 C 88 18 138/90 BP Pulse Ox Pulse Ox 11/04/18 16:45 95 11/04/18 16:41 91 11/04/18 16:40 90 11/04/18 16:36 92 11/04/18 16:35 87 L 11/04/18 16:31 96 11/04/18 16:30 88 L 11/04/18 16:26 93 11/04/18 16:25 95 11/04/18 16:21 91 11/04/18 16:20 90 11/04/18 16:17 93 11/04/18 16:15 91 11/04/18 16:12 11/04/18 16:10 100 11/04/18 16:07 11/04/18 16:05 100 11/04/18 16:01 11/04/18 16:00 99 11/04/18 13:17 118/64 93 11/04/18 07:08 134/66 96 11/04/18 05:42 95 11/04/18 05:37 95 11/04/18 04:05 150/70 H 94 11/04/18 02:43 118/63 92 11/04/18 02:01 151/73 H 99 11/04/18 00:46 96 11/04/18 00:39 83 L Pain Intensity Right Hip: Pain Intensity: 0 Notes Mental Status: alert / awake / arousable Patient Amnestic to Procedure: Yes Nausea / Vomiting: adequately controlled Pain: adequately controlled Airway Patency, RR, SpO2: stable & adequate BP & HR: stable & adequate Hydration State: stable & adequate Neuraxial Anesthesia: was administered and sensory block is resolving Anesthetic Complications: no major complications apparent and Pt Satisfied with anesthetic care
[2018-11-04] MEDS: CEFAZOLIN 1000MG 1,000 MG/7.5 ML SYR IV SCH (22:30)
--- NOTE | 2018-11-05 01:30 | Operative Report ---
DATE OF OPERATION: 11/04/2018 INDICATION FOR PROCEDURE: The patient is an 88-year-old female who was at a personal skilled nursing. She has been sleeping in a recliner lately because of fractures in her back and being more comfortable and apparently fire alarm went off at the skilled nursing and she jumped out of the chair, fell and broke her hip and femur. She had a closed comminuted displaced intertrochanteric femur fracture with a large butterfly fragment extending into the femoral shaft and displaced lesser trochanteric fracture in varus alignment and marked shortening external rotation of the leg. PREOPERATIVE DIAGNOSIS: Closed comminuted right intertrochanteric hip fracture with proximal femoral shaft extension. POSTOPERATIVE DIAGNOSIS: Closed comminuted right intertrochanteric hip fracture with proximal femoral shaft extension. PROCEDURE: Open reduction internal fixation of trochanteric and upper femoral shaft fracture with a long trochanteric femoral nail by Synthes. SURGEON: Kamran Harris MD PROPERTY INSPECTOR: KAYLA Moss ANESTHESIA: Spinal, MAC. ESTIMATED BLOOD LOSS: 50 mL. FINDINGS: Consistent with postoperative diagnosis. DRAINS: None, but Owen catheter was in place prior to surgery. COMPLICATIONS: None. OPERATIVE PROCEDURE: The patient was taken to the operating room, anesthetized under spinal anesthetic per anesthesia department. She was transferred to the fracture table. She was brought down onto a perineal post. The left leg was placed into a leg holding device. It was well padded. Right leg was placed in boot traction. We initially had her hip in external rotation and abduction and we placed longitudinal traction, internal rotation, and adduction to reduce the fracture. We did some manipulation of the fracture fragments as well to align the fracture fragments. We got good alignment with traction and rotational realignment. There is still some minor displacement but generally there was good rotational alignment and fracture was out to length. At this time, the right lower extremity was prepped and draped in sterile fashion using ChloraPrep starting from the proximal to the hip area down to below the knee. The longitudinal incision was made proximal to the greater trochanter for about a 4-cm incision. Skin was incised sharply and subcutaneous fat was dissected down to the fascia. Subcutaneous bleeders were cauterized. The fascia was divided longitudinally and the gluteus medius was split with a Chaves elevator and the tip of the trochanter was palpated and a guide pin was advanced under fluoroscopic guidance into the fracture site without difficulty. Then, the Synthes long titanium trochanteric femoral nail with helical blade was used. The drill was used over the guide pin for the proximal insertional site. Then we placed the beaded guidewire down to the patella and we measured the length and chose the 360-mm length femoral nail. At this time, we dropped one 12-mm reamer down the canal just to make sure we had enough room for the 11-mm ventura. The ventura chosen was 11 x 360 mm titanium cannulated trochanteric Synthes femoral nail. This was placed on the insertion device. We placed it down over the guidewire under fluoroscopic guidance. The nail was seated to appropriate height. We did make some adjustments to get the guidewire into the appropriate position but the guidewire was placed in the lower third on the AP view and central, but just slightly anterior from central on the lateral view, but we felt it was satisfactory position. Then appropriate drills were used and the titanium spiral helical blade, which was 105 mm length was impacted fully with good purchase. The proximal screw was tightened. Then we did perfect circles to place 2 locking bolts to distal ventura. It was noted that her bone was extremely soft and the bite was only fair, but this was due to her osteoporosis. Documented reduction of the fracture on multiple views, AP and lateral. Then the wounds were copiously irrigated. The fascia was closed with [id number] #1 Vicryl sutures. Subcutaneous tissues were closed with interrupted 2-0 Vicryl, skin closed with roshan, multiple incisions, and sterile dressings were applied. The patient had about 50 mL of blood loss and tolerated the procedure well. KAYLA Moss, was my first dyer and functioned as first dyer throughout the entire procedure. He assisted me in patient positioning, assisted in reducing the fracture, he assisted in soft tissue retraction, instrument management during the procedure and performed some of the fascial, subcutaneous, and skin closure and will participate in the postoperative care of the patient. I attest to the content of the Intraoperative Record and any orders documented therein. Any exception s are noted below.
[2018-11-05] MEDS ORDERED: SODIUM CHLORIDE 0.9% 1000ML 1,000 ML IV STA (06:34)
[2018-11-05] MEDS ORDERED: MAGNESIUM SULFATE / D5W 1 GM/100 ML BAG IV ONE (06:45)
[2018-11-05] MEDS: CEFAZOLIN 1000MG 1,000 MG/7.5 ML SYR IV SCH (06:47)
[2018-11-05 07:15] LABS: BUN Creatinine Ratio 47.8 (10-20); Calcium 9.3 mg/dl (8.5-10.1); Creatinine Clr Calc Pharmacy 58.6 ml/min; Est GFR (African American) 100.3; Est GFR (Non-African American) 86.5; Potassium 4.3 mmol/L (3.5-5.1)
[2018-11-05 07:21] LABS: Hematocrit (blood only) 20.5 % (37-47); Hemoglobin 6.9 g/dL (12.0-16.0); Mean Corpuscular Hgb Conc 33.7 g/dL (32-36); Mean Corpuscular Volume 96.2 fL (80-100); Mean Platelet Volume 10.2 fL (7.4-10.4); Platelet Count 182 K/uL (130-400); RDW Coefficient of Variation 13.4 % (11.5-14.5); RDW Standard Deviation 46.9 fL (36.4-46.3); Red Blood Count 2.13 M/uL (4.2-5.4); White Blood Count 10.83 K/uL (4.8-10.8)
[2018-11-05 07:22] LABS: Basophils # (auto) 0.01 K/uL (0-0.2); Basophils % (auto) 0.1 %; Hypochromasia Present; Immature Granulocytes # (auto) 0.03 K/uL (0.00-0.02); Immature Granulocytes % (auto) 0.3 %; Lymphocytes # (auto) 1.23 K/uL (1.2-3.4); Lymphocytes % (auto) 11.4 %; Monocytes # (auto) 1.17 K/uL (0.11-0.59); Monocytes % (auto) 10.8 %; Neutrophils # (auto) 8.39 K/uL (1.4-6.5); Neutrophils % (auto) 77.4 %
--- NOTE | 2018-11-05 07:47 | Orthopedic Progress Note ---
Date of Service November 05, 2018 Assessment & Plan (1) Hip fracture, right: POD #1, Right hip ORIF Long Troch nail Acute blood loss anemia w HGB 6.8, will have nursing notify primary service if not already done for likely transfusion. PT/ Ot- TTWB DVT proph- Lovenox Disposition per primary team, likely SNF/ Rehab. Subjective POD #1, Patient states no pain, hip comfortable. Denies N/V, CP. HGB 8.6, pulse 101, BP stable. Physical Exam Vital Signs (Past 24 Hours): Last Vital Signs Temp 36.7 C 11/05/18 04:20 Pulse 101 H 11/05/18 04:20 Resp 16 11/05/18 04:20 BP 120/56 L 11/05/18 04:20 Pulse Ox 92 11/05/18 04:21 Physical Exam: Patient confused, stated twice she "needed to get down". I explained where she was and she understood. She was able to vaguely remember hurting her hip and having surgery. Hip Dressing c/d/i, no drainage, no erythema, no calf tenderness, toes and ankle mobile.
[2018-11-05] MEDS ORDERED: SODIUM CHLORIDE 0.9% 250 ML IV PRN (08:12)
[2018-11-05] MEDS: CARVEDILOL 6.25 MG TAB PO SCH (08:56)
[2018-11-05] MEDS: LISINOPRIL 10 MG TAB PO SCH (08:57)
[2018-11-05] MEDS: TRAZODONE HCL 50 MG TAB PO SCH (08:57)
[2018-11-05] MEDS: ACETAMINOPHEN 325 MG TAB PO PRN (08:59)
[2018-11-05] MEDS: SERTRALINE HCL 50 MG TABLET PO SCH (08:59)
[2018-11-05] MEDS: ENOXAPARIN INJ 30 MG/0.3 ML SYR SQ SCH (09:21)
[2018-11-05] MEDS: TRAMADOL HCL 50 MG TABLET PO PRN (14:46)
--- NOTE | 2018-11-05 15:20 | Hospitalist Progress Note ---
Date of Service November 05, 2018 Assessment & Plan (1) Hip fracture, right: Secondary to mechanical fall No history of loss of consciousness Appreciate Ortho input and recommendation Likely to have surgery sometime today or tomorrow No medical contraindication to prospective surgical procedure pending Orthopedics evaluation. Status post right hip ORIF with long trochanteric nail, POD #1 Clinically stable Will get PT OT evaluation and possible placement on discharge Anemia, possibly from joint trauma Patient also gives intermittent epistaxis episodes at home over the last few weeks. Hemoglobin dropped to 6.9 this morning 1 unit of blood was transfused Hypoxemic respiratory failure likely secondary to narcotic analgesia Oxygen as needed Remains stable without any acute shortness of breath H/O breast cancer right status post surgery hypertension, stable Hyperglycemia rule out DM DVT prophylaxis. SCDs Full code Patient requests for her nephew, Mr. Héctor Pineda to be updated of plan of care. (Contact #[phone].) Subjective 11/04 Patient is seen and examined medically She is a status post fall with fracture of the right humeral head Complaints of pain in the right lower extremity Denies any other symptoms of shortness of breath, palpitation chest pain, abdominal pain, nausea no vomiting, 11/05 Patient was seen and examined in the medical floor She is status post right hip surgery He denies any significant symptoms except some pain in the right hip and leg Physical Exam Vital Signs (Past 24 Hours): Last Vital Signs Temp 36.7 C 11/05/18 12:50 Pulse 106 H 11/05/18 12:50 Resp 18 11/05/18 12:50 BP 94/54 L 11/05/18 12:50 Pulse Ox 92 11/05/18 12:50 Physical Exam: No apparent distress at rest Constitutional: WD/WN, vitals as above + ill appearing Eyes: PERRL, conjunctivae normal, anicteric sclerae ENMT: external ear and nose normal, oropharynx normal Neck: trachea midline, no thyromegaly Respiratory: normal respiratory effort Auscultation: lungs clear to auscultation bilaterally and + diminished lung sounds Cardiovascular: Rate/Rhythm: regular rate and regular rhythm Heart Sounds: normal S1 and normal S2 Gastrointestinal (Abdomen): Inspection/Auscultation: abdomen normal to inspection and normal bowel sounds Percussion/Palpation: abdomen soft; abdomen nontender Neurologic: Alert, awake and oriented Results & Data Laboratory Results Short CBC 11/05/18 Range/Units 06:37 WBC 10.83 H (4.8-10.8) K/uL Hgb 6.9 L* D (12.0-16.0) g/dL Hct 20.5 L* (37-47) % Plt Count 182 (130-400) K/uL BMP 11/05/18 06:37 Sodium 135 L Potassium 4.3 Chloride 106 Carbon Dioxide 27 BUN 25 H Creatinine 0.52 L Glucose 121 H Calcium 9.3 Medications Administered Current Inpatient Medications Acetaminophen (Tylenol) 650 mg PO Q4H PRN PRN Reason: pain/fever Stop: 12/04/18 03:54 Last Admin: 11/05/18 08:59 Dose: 650 mg Documented by: Carvedilol (Coreg) 6.25 mg PO DAILY JESSICA Stop: 12/04/18 08:59 Last Admin: 11/05/18 08:56 Dose: Not Given Documented by: Enoxaparin Sodium (Lovenox) 30 mg SQ Q24H [facility]ESSICA Stop: 12/05/18 08:59 Last Admin: 11/05/18 09:21 Dose: 30 mg Documented by: Hydromorphone HCl (Dilaudid) 0.25 mg IV Q2H PRN PRN Reason: Pain Stop: 11/18/18 03:54 Last Admin: 11/04/18 07:53 Dose: 0.25 mg Documented by: Prochlorperazine 5 mg/ Syringe 5 mls @ 5 mls/min IV Q6H PRN PRN Reason: Nausea And Vomiting Stop: 12/04/18 03:54 Sodium Chloride (Nss 1000ml) 1,000 mls @ 60 mls/hr IV .[id number] STA Stop: 11/05/18 23:13 Last Admin: 11/05/18 06:47 Dose: 60 mls/hr Documented by: Sodium Chloride (Nss) 250 mls @ 15 mls/hr IV .[id number] PRN PRN Reason: For Transfusion Stop: 12/05/18 08:11 Lisinopril (Zestril) 10 mg PO QAM JESSICA Stop: 12/04/18 08:59 Last Admin: 11/05/18 08:57 Dose: Not Given Documented by: Magnesium Hydroxide (Milk Of Magnesia) 30 ml PO DAILY PRN PRN Reason: Constipation Stop: 12/04/18 03:54 Naloxone HCl (Narcan) 0.1 mg IV UD PRN PRN Reason: Opioid Overdose Stop: 12/04/18 17:09 Polyethylene Glycol (Miralax Powder Packet) 17 gm PO DAILY PRN PRN Reason: constipation Stop: 12/04/18 04:55 Senna/Docusate Sodium (Senokot S) 3 tab PO BID PRN PRN Reason: Constipation Stop: 12/04/18 04:55 Sertraline [facility] ([facility]ft) [facility] [place] Stop: 12/04/18 08:59 Last Admin: 11/05/18 08:59 Dose: 25 mg Documented by: Tramadol HCl (Ultram) 25 - 50 mg PO Q4H PRN PRN Reason: Pain Stop: 12/04/18 03:54 Last Admin: 11/05/18 14:46 Dose: 50 mg Documented by: Trazodone HCl (Desyrel) 25 mg PO QAM [facility] Stop: 12/04/18 08:59 Last Admin: 11/05/18 08:57 Dose: Not Given Documented by:
[2018-11-06 07:59] LABS: Hematocrit (blood only) 20.8 % (37-47); Hemoglobin 7.1 g/dL (12.0-16.0); Mean Corpuscular Hgb Conc 34.1 g/dL (32-36); Mean Corpuscular Volume 91.6 fL (80-100); Mean Platelet Volume 10.3 fL (7.4-10.4); Platelet Count 141 K/uL (130-400); RDW Coefficient of Variation 17.3 % (11.5-14.5); RDW Standard Deviation 59.1 fL (36.4-46.3); Red Blood Count 2.27 M/uL (4.2-5.4); White Blood Count 12.38 K/uL (4.8-10.8)
[2018-11-06 08:08] LABS: Basophils # (auto) 0.01 K/uL (0-0.2); Basophils % (auto) 0.1 %; Eosinophils # (auto) 0.01 K/uL (0-0.5); Eosinophils % (auto) 0.1 %; Immature Granulocytes # (auto) 0.03 K/uL (0.00-0.02); Immature Granulocytes % (auto) 0.2 %; Lymphocytes % (auto) 12.1 %; Monocytes # (auto) 1.34 K/uL (0.11-0.59); Monocytes % (auto) 10.8 %; Neutrophils # (auto) 9.49 K/uL (1.4-6.5); Neutrophils % (auto) 76.7 %
[2018-11-06] MEDS ORDERED: SODIUM CHLORIDE 0.9% 250 ML IV PRN (08:09)
[2018-11-06] MEDS: SERTRALINE HCL 50 MG TABLET PO SCH (09:26)
[2018-11-06] MEDS: TRAZODONE HCL 50 MG TAB PO SCH (09:26)
[2018-11-06] MEDS: LISINOPRIL 10 MG TAB PO SCH (09:26)
[2018-11-06] MEDS: ENOXAPARIN INJ 30 MG/0.3 ML SYR SQ SCH (09:27)
[2018-11-06] MEDS: CARVEDILOL 6.25 MG TAB PO SCH (09:27)
--- NOTE | 2018-11-06 10:45 | Orthopedic Progress Note ---
Date of Service November 06, 2018 Assessment & Plan (1) Hip fracture, right: POD #2, Right hip ORIF Long Troch nail Acute blood loss anemia w HGB 7.1, s/p transfusion, as per medicine. PT/ Ot- TTWB DVT proph- Lovenox Disposition per primary team, likely SNF/ Rehab. Subjective POD #2, Patient states no pain, hip comfortable. Denies N/V, CP. HGB 7.1, pulse 88, BP stable. Physical Exam Vital Signs (Past 24 Hours): Last Vital Signs Temp 36.6 C 11/06/18 10:09 Pulse 88 11/06/18 10:09 Resp 19 11/06/18 10:09 BP 120/63 11/06/18 10:09 Pulse Ox 98 11/06/18 10:09 Physical Exam: Right hip dressings c/d/i, no drainage, no calf tenderness, toes and ankle mobile, still pleasantly confused, thinks she is at [place].
--- NOTE | 2018-11-06 18:03 | Hospitalist Progress Note ---
Date of Service November 06, 2018 Assessment & Plan (1) Hip fracture, right: Secondary to mechanical fall No history of loss of consciousness Appreciate Ortho input and recommendation Likely to have surgery sometime today or tomorrow No medical contraindication to prospective surgical procedure pending Orthopedics evaluation. Status post right hip ORIF with long trochanteric nail, POD #2 Clinically stable Will get PT OT evaluation and possible placement on discharge Likely be discharged tomorrow for short-term rehab Anemia, possibly from joint trauma Patient also gives intermittent epistaxis episodes at home over the last few weeks. Hemoglobin dropped to 6.9 this morning 1 unit of blood was transfused Hemoglobin dropped to 7.1 today and will give another unit of blood transfusion Hypoxemic respiratory failure likely secondary to narcotic analgesia Oxygen as needed Remains stable without any acute shortness of breath H/O breast cancer right status post surgery hypertension, stable Hyperglycemia rule out DM DVT prophylaxis. SCDs Full code Patient requests for her nephew, Mr. Héctor Pineda to be updated of plan of care. (Contact #[phone].) Likely discharge tomorrow Subjective 4/15 Patient is seen and examined medically She is a status post fall with fracture of the right humeral head Complaints of pain in the right lower extremity Denies any other symptoms of shortness of breath, palpitation chest pain, abdominal pain, nausea no vomiting, 4/16 Patient was seen and examined in the medical floor She is status post right hip surgery He denies any significant symptoms except some pain in the right hip and leg 4/17 Remains a stable since yesterday Hemoglobin dropped to 7.1 and we will give another unit of packed red cell blood transfusion Remains asymptomatic otherwise POD #2, Patient states no pain, hip comfortable. Denies N/V, CP. HGB 7.1, pulse 88, BP stable. Review of Systems Musculoskeletal: Right lower extremity movement causes pain in the hip Neurologic: Generally weak and lethargic Physical Exam Physical Exam: No apparent distress at rest Constitutional: WD/WN, vitals as above + ill appearing Eyes: PERRL, conjunctivae normal, anicteric sclerae ENMT: external ear and nose normal, oropharynx normal Neck: trachea midline, no thyromegaly Respiratory: normal respiratory effort Auscultation: lungs clear to auscultation bilaterally and + diminished lung sounds Cardiovascular: Rate/Rhythm: regular rate and regular rhythm Heart Sounds: normal S1 and normal S2 Gastrointestinal (Abdomen): Inspection/Auscultation: abdomen normal to inspection and normal bowel sounds Percussion/Palpation: abdomen soft; abdomen nontender Neurologic: Alert, awake and oriented x3 Results & Data Vital Signs (Past 12 Hours) Vital Signs Temp Pulse Pulse Pulse Resp BP BP 11/06/18 15:00 36.7 C 76 19 119/56 L 11/06/18 13:15 36.8 C 95 H 22 135/61 11/06/18 12:10 36.8 C 87 17 124/62 11/06/18 11:10 36.6 C 88 17 122/63 11/06/18 10:09 36.6 C 88 19 120/63 11/06/18 09:50 36.8 C 85 18 112/60 11/06/18 09:25 37.0 C 93 H 19 112/64 11/06/18 09:08 36.2 C L 81 18 132/65 11/06/18 08:05 36.5 C 81 16 108/58 L 11/06/18 06:58 36.5 C 99 H 14 137/69 Pulse Ox 11/06/18 15:00 93 11/06/18 13:15 92 11/06/18 12:10 97 11/06/18 11:10 98 11/06/18 10:09 98 11/06/18 09:50 98 11/06/18 09:25 98 11/06/18 09:08 98 11/06/18 08:05 97 11/06/18 06:58 96 Laboratory Results Short CBC 11/06/18 Range/Units 07:13 WBC 12.38 H (4.8-10.8) K/uL Hgb 7.1 L (12.0-16.0) g/dL Hct 20.8 L* (37-47) % Plt Count 141 (130-400) K/uL Medications Administered Current Inpatient Medications Acetaminophen (Tylenol) 650 mg PO Q4H PRN PRN Reason: pain/fever Stop: 12/04/18 03:54 Last Admin: 11/05/18 08:59 Dose: 650 mg Documented by: Carvedilol (Coreg) 6.25 mg PO DAILY JESSICA Stop: 12/04/18 08:59 Last Admin: 11/06/18 09:27 Dose: 6.25 mg Documented by: Enoxaparin Sodium (Lovenox) 30 mg SQ Q24H [facility] Stop: 12/05/18 08:59 Last Admin: 11/06/18 09:27 Dose: 30 mg Documented by: Hydromorphone HCl (Dilaudid) 0.25 mg IV Q2H PRN PRN Reason: Pain Stop: 11/18/18 03:54 Last Admin: 11/04/18 07:53 Dose: 0.25 mg Documented by: Prochlorperazine 5 mg/ Syringe 5 mls @ 5 mls/min IV Q6H PRN PRN Reason: Nausea And Vomiting Stop: 12/04/18 03:54 Sodium Chloride (Nss) 250 mls @ 15 mls/hr IV .[id number] PRN PRN Reason: For Transfusion Stop: 12/06/18 08:08 Lisinopril (Zestril) [facility] [place] Stop: 12/04/18 08:59 Last Admin: 11/06/18 09:26 Dose: 10 mg Documented by: Magnesium Hydroxide (Milk Of Magnesia) 30 ml PO DAILY PRN PRN Reason: Constipation Stop: 12/04/18 03:54 Naloxone HCl (Narcan) 0.1 mg IV UD PRN PRN Reason: Opioid Overdose Stop: 12/04/18 17:09 Polyethylene Glycol (Miralax Powder Packet) 17 gm PO DAILY PRN PRN Reason: constipation Stop: 12/04/18 04:55 Last Admin: 11/06/18 11:12 Dose: 17 gm Documented by: Senna/Docusate Sodium (Senokot S) 3 tab PO BID PRN PRN Reason: Constipation Stop: 12/04/18 04:55 Sertraline HCl (Zoloft) 25 mg PO QAM [facility] Stop: 12/04/18 08:59 Last Admin: 11/06/18 09:26 Dose: 25 mg Documented by: Tramadol HCl (Ultram) 25 - 50 mg PO Q4H PRN PRN Reason: Pain Stop: 12/04/18 03:54 Last Admin: 11/05/18 14:46 Dose: 50 mg Documented by: Trazodone HCl (Desyrel) 25 mg PO QAM [facility] Stop: 12/04/18 08:59 Last Admin: 11/06/18 09:26 Dose: 25 mg Documented by:
[2018-11-06] MEDS: ACETAMINOPHEN 325 MG TAB PO PRN (19:37)
[2018-11-07] MEDS ORDERED: SODIUM CHLORIDE 0.9% 1000ML 1,000 ML IV STA (06:07)
[2018-11-07 06:54] LABS: Basophils # (auto) 0.01 K/uL (0-0.2); Basophils % (auto) 0.1 %; Eosinophils # (auto) 0.04 K/uL (0-0.5); Eosinophils % (auto) 0.4 %; Hematocrit (blood only) 23.7 % (37-47); Immature Granulocytes # (auto) 0.03 K/uL (0.00-0.02); Immature Granulocytes % (auto) 0.3 %; Lymphocytes # (auto) 1.41 K/uL (1.2-3.4); Mean Corpuscular Hgb Conc 33.8 g/dL (32-36); Mean Corpuscular Volume 93.7 fL (80-100); Mean Platelet Volume 10.4 fL (7.4-10.4); Monocytes # (auto) 0.98 K/uL (0.11-0.59); Monocytes % (auto) 9.8 %; Neutrophils # (auto) 7.57 K/uL (1.4-6.5); Neutrophils % (auto) 75.4 %; Platelet Count 157 K/uL (130-400); RDW Coefficient of Variation 16.6 % (11.5-14.5); RDW Standard Deviation 56.6 fL (36.4-46.3); Red Blood Count 2.53 M/uL (4.2-5.4); White Blood Count 10.04 K/uL (4.8-10.8)
[2018-11-07 07:26] LABS: BUN Creatinine Ratio 58.4 (10-20); Calcium 9.5 mg/dl (8.5-10.1); Creatinine Clr Calc Pharmacy 74.3 ml/min; Est GFR (African American) 108.4; Est GFR (Non-African American) 93.5; Potassium 4.2 mmol/L (3.5-5.1)
[2018-11-07 07:41] VITALS: TEMP 98.1
--- NOTE | 2018-11-07 08:01 | Orthopedic Progress Note ---
Date of Service November 07, 2018 Assessment & Plan (1) Hip fracture, right: POD #3, Right hip ORIF Long Troch nail Acute blood loss anemia w HGB 8.0, s/p repeat transfusion, as per medicine. PT/ OT- TTWB DVT proph- Lovenox Disposition per primary team, likely SNF/ Rehab. Ortho will sign off, please call with any quetions. Follow up with Dr. Harris 12-14 days post op, call [phone] for appt. Subjective POD #3, Patient states no pain, hip comfortable. Denies N/V, CP. HGB 8.0 s/p transfusion. Physical Exam Physical Exam: Right hip incisions c/d/i, mild bloody drainage, toes and ankle mobile, no calf tenderness. Results & Data Vital Signs (Past 12 Hours) Vital Signs Temp Pulse Pulse Resp BP Pulse Ox 11/07/18 07:40 36.7 C 84 16 125/64 97 11/06/18 23:02 37.2 C 99 H 20 149/67 H 97
[2018-11-07] MEDS: LISINOPRIL 10 MG TAB PO SCH (08:06)
[2018-11-07] MEDS: CARVEDILOL 6.25 MG TAB PO SCH (08:06)
[2018-11-07] MEDS: TRAMADOL HCL 50 MG TABLET PO PRN (08:06)
[2018-11-07] MEDS: ENOXAPARIN INJ 30 MG/0.3 ML SYR SQ SCH (08:07)
[2018-11-07] MEDS: SERTRALINE HCL 50 MG TABLET PO SCH (08:07)
[2018-11-07] MEDS: TRAZODONE HCL 50 MG TAB PO SCH (08:07)
--- NOTE | 2018-11-07 11:55 | Hospitalist Progress Note ---
Date of Service November 07, 2018 Assessment & Plan (1) Hip fracture, right: Secondary to mechanical fall No history of loss of consciousness Appreciate Ortho input and recommendation Likely to have surgery sometime today or tomorrow No medical contraindication to prospective surgical procedure pending Orthopedics evaluation. Status post right hip ORIF with long trochanteric nail, POD #3 Clinically stable Will get PT OT evaluation and possible placement on discharge Likely be discharged tomorrow for short-term rehab Will be discharged today to the rehab center Anemia, possibly from joint trauma Patient also gives intermittent epistaxis episodes at home over the last few weeks. Hemoglobin dropped to 6.9 this morning 1 unit of blood was transfused Hemoglobin dropped to 7.1 today and will give another unit of blood transfusion Hemoglobin is 8.0 today and the patient remains asymptomatic Hypoxemic respiratory failure likely secondary to narcotic analgesia Oxygen as needed Remains stable without any acute shortness of breath No more symptoms H/O breast cancer right status post surgery hypertension, stable Hyperglycemia rule out DM DVT prophylaxis. SCDs Full code Patient requests for her nephew, Mr. Héctor Pineda to be updated of plan of care. (Contact #[phone].) Likely discharge tomorrow Subjective 4/15 Patient is seen and examined medically She is a status post fall with fracture of the right humeral head Complaints of pain in the right lower extremity Denies any other symptoms of shortness of breath, palpitation chest pain, abdominal pain, nausea no vomiting, 11/05 Patient was seen and examined in the medical floor She is status post right hip surgery He denies any significant symptoms except some pain in the right hip and leg 17 Remains a stable since yesterday Hemoglobin dropped to 7.1 and we will give another unit of packed red cell blood transfusion Remains asymptomatic otherwise POD #2, Patient states no pain, hip comfortable. Denies N/V, CP. HGB 7.1, pulse 88, BP stable. 418 The patient was seen and examined in medical floor Status post right hip replacement surgery She is a status post 2 unit of blood transfusion Hemal hemoglobin is 8.0 today She remains asymptomatic and denies any symptoms Will be transferred to rehab this afternoon POD #3, Patient states no pain, hip comfortable. Denies N/V, CP. HGB 8.0 s/p transfusion. Review of Systems Review of Systems: All systems reviewed and are unremarkable except as noted Musculoskeletal: + joint pain (Pain with movement of the right lower extremity especially at the hip joint) and + muscle weakness Neurologic: + generalized weakness Physical Exam Physical Exam: No apparent distress at rest Constitutional: WD/WN, vitals as above + ill appearing Eyes: PERRL, conjunctivae normal, anicteric sclerae ENMT: external ear and nose normal, oropharynx normal Neck: trachea midline, no thyromegaly Respiratory: normal respiratory effort Auscultation: lungs clear to auscultation bilaterally and + diminished lung sounds Cardiovascular: Rate/Rhythm: regular rate and regular rhythm Heart Sounds: normal S1 and normal S2 Gastrointestinal (Abdomen): Inspection/Auscultation: abdomen normal to inspection and normal bowel sounds Percussion/Palpation: abdomen soft; abdomen nontender Neurologic: Generally weak and lethargy Results & Data Vital Signs (Past 12 Hours) Vital Signs Temp Pulse Resp BP Pulse Ox 11/07/18 07:40 36.7 C 84 16 125/64 97 Laboratory Results Short CBC 11/07/18 Range/Units 06:14 WBC 10.04 (4.8-10.8) K/uL Hgb 8.0 L (12.0-16.0) g/dL Hct 23.7 L (37-47) % Plt Count 157 (130-400) K/uL BMP 11/07/18 06:14 Sodium 138 Potassium 4.2 Chloride 108 H Carbon Dioxide 29 BUN 24 H Creatinine 0.41 L Glucose 94 Calcium 9.5 Medications Administered Current Inpatient Medications Acetaminophen (Tylenol) 650 mg PO Q4H PRN PRN Reason: pain/fever Stop: 12/04/18 03:54 Last Admin: 11/06/18 19:37 Dose: 650 mg Documented by: Carvedilol (Coreg) 6.25 mg PO DAILY [facility] Stop: 12/04/18 08:59 Last Admin: 11/07/18 08:06 Dose: 6.25 mg Documented by: Enoxaparin Sodium (Lovenox) 30 mg SQ Q24H JESSICA Stop: 12/05/18 08:59 Last Admin: 11/07/18 08:07 Dose: 30 mg Documented by: Hydromorphone HCl (Dilaudid) 0.25 mg IV Q2H PRN PRN Reason: Pain Stop: 11/18/18 03:54 Last Admin: 11/04/18 07:53 Dose: 0.25 mg Documented by: Prochlorperazine 5 mg/ Syringe 5 mls @ 5 mls/min IV Q6H PRN PRN Reason: Nausea And Vomiting Stop: 12/04/18 03:54 Sodium Chloride (Nss) 250 mls @ 15 mls/hr IV .[id number] PRN PRN Reason: For Transfusion Stop: 12/06/18 08:08 Sodium Chloride (Nss 1000ml) 1,000 mls @ 50 mls/hr IV .Q20H STA Stop: 11/08/18 02:06 Last Admin: 11/07/18 06:21 Dose: 50 mls/hr Documented by: [facility]inop[facility] ([facility]est[facility]) [facility] [place]: 12/04/18 08:59 Last Admin: 11/07/18 08:06 Dose: 10 mg Documented by: Magnesium Hydroxide (Milk Of Magnesia) 30 ml PO DAILY PRN PRN Reason: Constipation Stop: 12/04/18 03:54 Naloxone HCl (Narcan) 0.1 mg IV UD PRN PRN Reason: Opioid Overdose Stop: 12/04/18 17:09 Polyethylene Glycol (Miralax Powder Packet) 17 gm PO DAILY PRN PRN Reason: constipation Stop: 12/04/18 04:55 Last Admin: 11/06/18 11:12 Dose: 17 gm Documented by: Senna/Docusate Sodium (Senokot S) 3 tab PO BID PRN PRN Reason: Constipation Stop: 12/04/18 04:55 Sertraline HCl (Zoloft) 25 mg PO [facility] Stop: 12/04/18 08:59 Last Admin: 11/07/18 08:07 Dose: 25 mg Documented by: Tramadol HCl (Ultram) 25 - 50 mg PO Q4H PRN PRN Reason: Pain Stop: 12/04/18 03:54 Last Admin: 11/07/18 08:06 Dose: 50 mg Documented by: Trazodone HCl (Desyrel) [facility] [place]: 12/04/18 08:59 Last Admin: 11/07/18 08:07 Dose: 25 mg Documented by:
[2018-11-07 15:31] VITALS: PULSE 66; O2SAT 93
[2018-11-07 15:55] VITALS: BP 118/64
--- NOTE | 2018-11-08 08:34 | Discharge Summary ---
Date of Service November 08, 2018 Admission HPI Per Admitting Provider History obtained from patient and records. Medical history significant for breast cancer right status post surgery, hypertension, mood disorder, osteoarthritis, osteoporosis, skin cancer as per records. Recent confinement June 2018 for back pain attributed to T12 compression deformity. Last night, patient was at home when she was startled by a fire alarm at [facility]. Patient got up subsequently falling down on her right side. Patient noted excruciating right hip pain, unable to get up. Right hip noted to be shortened. No chest pain, no SOB. Denies head injury, LOC. O2 sats noted to be 80s after 8 mg of Morphine IM given en route to the hospital. 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, exertional shortness of breath prior to injury Admission Exam Per Admitting Provider Vital Signs (Past 24 Hours): Last Vital Signs Temp 36.5 C 11/04/18 00:39 Pulse 75 11/04/18 02:43 Resp 18 11/04/18 02:43 BP 118/63 11/04/18 02:43 Pulse Ox 92 11/04/18 02:43 Physical Exam: GENERAL: uncomfortable, anxious, no respiratory distress SKIN: Pallor , warm HEENT: Pale palpebral conjunctivae, no ptosis, dry buccal mucosa, nasal cannula in place NECK : Supple, no tenderness CHEST : Decreased effort , no tenderness HEART : RRR, no obvious murmurs ABDOMEN: Some distention, nontender EXTREMITIES : Tender swelling right hip, right hip rotated ; no other conspicuous deformities noted NEUROLOGIC : Coherent, no facial asymmetry, no other gross focality Principal Diagnosis Right hip fracture status post ORIF, mechanical fall, acute blood loss anemia status post 2 unit of blood transfusion Discharge Exam Constitutional WD/WN, vitals as above + ill appearing Eyes PERRL, conjunctivae normal, anicteric sclerae ENMT external ear and nose normal, oropharynx normal Neck trachea midline, no thyromegaly Respiratory normal respiratory effort Auscultation: lungs clear to auscultation bilaterally and + diminished lung sounds Cardiovascular Rate/Rhythm: regular rate and regular rhythm Heart Sounds: normal S1 and normal S2 Gastrointestinal (Abdomen) Inspection/Auscultation: abdomen normal to inspection and normal bowel sounds Percussion/Palpation: abdomen soft; abdomen nontender Discharge Data Allergies Allergy/AdvReac Type Severity Reaction Status Date / Time No Known Allergies Allergy Unknown Verified 11/04/18 02:09 Consultations 11/04/18 03:55 Consult Case Management - Discharge Planning Routine 11/04/18 03:56 Consult Case Management - Discharge Planning Routine Consult Orthopedic Surgery Routine 11/04/18 04:06 ED Decision to Admit Stat 11/04/18 08:16 Consult Anesthesiology Routine 11/04/18 17:10 Consult Case Management - Discharge Planning Routine Procedures Performed Operation Date: 11/04/18 07:10 Actual Procedures p Open Reduction Internal Fixation Right Intertrochanteric and Upper Femoral Shaft Fracture(Right) - Kamran Harris MD Ordered Studies 11/04/18 02:39 CT head/brain wo con Urgent 11/04/18 02:40 CT cervical spine wo con Urgent 11/04/18 12:30 FL fluoroscopy <1hr Routine FL hip RT 2-3V Routine Hospital Course (1) Hip fracture, right: Secondary to mechanical fall No history of loss of consciousness Appreciate Ortho input and recommendation Likely to have surgery sometime today or tomorrow No medical contraindication to prospective surgical procedure pending Orthopedics evaluation. Status post right hip ORIF with long trochanteric nail, POD #3 Clinically stable Will get PT OT evaluation and possible placement on discharge Likely be discharged tomorrow for short-term rehab Will be discharged today to the rehab center Anemia, possibly from joint trauma Patient also gives intermittent epistaxis episodes at home over the last few weeks. Hemoglobin dropped to 6.9 this morning 1 unit of blood was transfused Hemoglobin dropped to 7.1 today and will give another unit of blood transfusion Hemoglobin is 8.0 today and the patient remains asymptomatic Hypoxemic respiratory failure likely secondary to narcotic analgesia Oxygen as needed Remains stable without any acute shortness of breath No more symptoms H/O breast cancer right status post surgery hypertension, stable Hyperglycemia rule out DM DVT prophylaxis. SCDs Full code Patient requests for her nephew, Mr. Héctor Pineda to be updated of plan of care. (Contact #[phone].) Likely discharge tomorrow Total Time Total Time Spent Total Time Spent (In Minutes): 35 minutes Total Time Includes: Examination of the Patient, Discharge Planning, Medication Reconciliation and Communication With Other Providers Discharge Plan Discharge Items Patient Disposition: Transfer Jail Fac Reason For Visit: RIGHT HIP FRACTURE Discharge Diagnosis: Right hip fracture status post ORIF, mechanical fall, acute blood loss anemia status post 2 unit of blood transfusion Condition: Fair Discharge Goals: Decrease discomfort, Improve function and Increase independence Activity: Resume your previous activity Activity Comment: Will need PT and OT Non-emergency contact: Primary Care Provider Call non-emergency contact if: you have any medication questions and your symptoms worsen Follow-up/Referrals: Jessee Monterroso [Primary Care Provider] - Diet: Regular Addtl Provider Instructions: Please take precaution to avoid fall. Continue PT and OT Prescriptions: New tramadol 50 mg Tablet 25 mg PO Q4H PRN (Reason: pain) 10 Days Qty: 20 RF: 0 enoxaparin [Lovenox] 30 mg/0.3 mL Syringe 30 mg subcut Q24H 30 Days Qty: 9 RF: 0 Continued carvedilol 6.25 mg tablet 6.25 mg PO DAILY RF: 0 trazodone 50 mg tablet 25 mg PO QAM RF: 0 sertraline 25 mg tablet 25 mg PO QAM RF: 0 cholecalciferol (vitamin D3) [Vitamin D3] 2,000 unit Tablet 2,000 unit PO DAILY RF: 0 lisinopril 10 mg tablet 10 mg PO QAM RF: 0 Icy Hot 30-10 % Cream 1 applic TOPICAL QAM RF: [address]pas [address] Film 1 patch topical QAM RF: 0 alum-mag hydroxide-simeth [Antacid] 200-200-20 mg/5 mL Suspension 30 ml PO BIDM RF: 0 alum-mag hydroxide-simeth [Antacid] 200-200-20 mg/5 mL Suspension 30 ml PO TID PRN (Reason: ABDOMINAL GAS\) RF: 0 sennosides-docusate sodium [Senna Plus] 8.6-50 mg Tablet 3 tab PO BID PRN (Reason: Constipation) RF: 0 acetaminophen [Tylenol Extra Strength] 500 mg Tablet 500 mg PO Q6H MDD 3g/24hr PRN (Reason: Pain) RF: 0 raloxifene 60 mg tablet 60 mg PO QAM RF: 0 polyethylene glycol 3350 [Miralax] 17 gram Powder In Packet 17 g PO DAILY PRN (Reason: constipation) Qty: 30 RF: 0 furosemide 20 mg tablet 20 mg PO MoWeFr@0900 Qty: 0 RF: 0 Stand-Alone Forms: [facility] Discharge Orders: Discharge Order (Routine); Ordered 11/07/18 Ordered By: Sonya Kerns Skilled Items Patient informed of condition?: Yes DNR: No Discharge Level of Care: Skilled Communicable Disease: No Discharge Prognosis: Stable Admission Data Admit Date/Time: 11/04/18 03:53 Attending Provider: Sonya Kerns Admit Provider: Austin Ferreira Primary Care Provider: Jessee Monterroso Other Providers: Austin Ferreira ; Rolando Reina ; Jason Alvarado ; Murali Del Rosario ; More Jack Thomas J ; Meg Logan ; Kevin Glover ; Jerome Pepper ; Christopher Rivas ; Jerome Ceballos ; Dre Pires. ; Christopher Fleming ; Morro Deluca ; Fei Pires ; Jay Ramirez ; Kamran Harris ; Dawit Patel ; Heber Cuevas ; Mayo Morris ; Meg Cisneros ; Octavio Venegas ; Héctor Braden ; Dre Benítez ; Joe Olivares ; Dre Acevedo Service: Surgical Services Other Interventions: Discharge Summary Assessment (RN) Last Done: 11/07/18 15:57 DC Date/Time DO NOT enter until pt leaves facility: 11/07/18 18:18
== END 2018-11-07 18:18 | DRG 480 ==
LOC: ED 00:19 → SUATTDRO 03:53 → 3N 03:53
DX: Z90.11 Acquired absence of right breast and nipple; M19.90 Unspecified osteoarthritis, unspecified site; M81.0 Age-related osteoporosis without current pathological fracture; J96.91 Respiratory failure, unspecified with hypoxia; W19.XXXA Unspecified fall, initial encounter; S72.301A Unspecified fracture of shaft of right femur, initial encounter for closed fracture; Z79.899 Other long term (current) drug therapy; R73.9 Hyperglycemia, unspecified; Z85.3 Personal history of malignant neoplasm of breast; T40.2X5A Adverse effect of other opioids, initial encounter; Y92.129 Unspecified place in nursing home as the place of occurrence of the external cause; S72.141A Displaced intertrochanteric fracture of right femur, initial encounter for closed fracture; Y99.8 Other external cause status; I10 Essential (primary) hypertension; Z79.810 Long term (current) use of selective estrogen receptor modulators (SERMs); D62 Acute posthemorrhagic anemia; F39 Unspecified mood [affective] disorder; Z87.311 Personal history of (healed) other pathological fracture